=== PATIENT | male | born 1995 | race Caucasian/White ===

== ENCOUNTER 2018-12-20 15:40 | Outpatient (CLI) | payer OTHER ==
--- NOTE | 2018-12-20 15:53 | RAD ---
Exam:3 views right hand HISTORY: Pain; trauma 3 weeks ago. COMPARISON: None FINDINGS: Distal metacarpal fracture. There is some callus formation suggesting a healing subacute fr acture. No acute fractures are appreciated. Joint spaces are preserved IMPRESSION: Subacute, healing fifth metacarpal fracture.
== END 2018-12-20 15:41 | disposition home or self-care (01) ==
LOC: SCSRAD 15:40
PROVIDERS: ATTEND Nurse Practitioner Family
DX: M79.641 Pain in right hand (principal); S62.396D Other fracture of fifth metacarpal bone, right hand, subsequent encounter for fracture with routine healing